=== PATIENT | male | born 1960 | race African-American/Black ===

== ENCOUNTER 2017-02-15 13:48 | Emergency (ER) | payer OTHER, MEDICAID ==
[~2017-02-15] VITALS: Ht 177.8 cm; Wt 97.0 kg
[~2017-02-15 13:48] MED LIST: AMLO10TA80; ATOR20TA; BENA40TA3; GLYB5TAB7; HYDR-2510; METF500T
[2017-02-15 20:56] LABS: CLARITY URINE CLEAR (CLEAR); COLOR URINE YELLOW (YELLOW); GLUCOSE URINE NEGATIVE (NEGATIVE); KETONES URINE NEGATIVE (NEGATIVE); LEUKOCYTE ESTERASE URINE 1+ (NEGATIVE); NITRITE URINE NEGATIVE (NEGATIVE); OCCULT BLOOD URINE 1+ (NEGATIVE); PH URINE 6.5 (4.5-8.0); PROTEIN URINE NEGATIVE (NEGATIVE); SPECIFIC GRAVITY URINE 1.021 (1.005-1.030); UROBILINOGEN URINE 0.2 E.U./dL (0.2-1.0)
[2017-02-15 21:06] LABS: MUCUS URINE 1+ /lpf (NONE/TRACE); SQUAMOUS EPITHELIAL CELL URINE FEW /lpf (RARE/1+)
[2017-02-15 21:10] LABS: BACTERIA URINE TRACE
[2017-02-15 22:17] VITALS: BP 144/91
== END 2017-02-15 22:38 | disposition home or self-care (01) ==
LOC: ER 14:00
DX: N45.1 Epididymitis (principal); E11.9 Type 2 diabetes mellitus without complications; E78.00 Pure hypercholesterolemia, unspecified; I10 Essential (primary) hypertension; Z79.4 Long term (current) use of insulin; Z79.899 Other long term (current) drug therapy
CPT/HCPCS: 76870; 81001; 93976; 99285

== ENCOUNTER 2018-02-15 14:09 | Emergency (ER) | payer OTHER, MEDICAID ==
[~2018-02-15] VITALS: Ht 177.8 cm; Wt 100.0 kg
[2018-02-15] MEDS ORDERED: vitamin b3 (14:20)
[2018-02-15] MEDS ORDERED: ZINC50TA4 PO (14:20)
[2018-02-15 14:42] LABS: BASOPHILS % 0.9 % (0.0-2.0); EOSINOPHILS % 1.3 % (0.0-5.0); HEMATOCRIT. 46.1 % (42.0-52.0); HEMOGLOBIN. 16.4 g/dL (14.0-18.0); LYMPHOCYTES % 22.6 % (20.0-50.0); MEAN CORPUSCULAR HEMOGLOBIN 33.1 pg (28.0-32.0); MEAN CORPUSCULAR VOLUME 93.1 fL (80.0-94.0); MEAN PLATELET VOLUME 8.6 fl (7.4-10.4); MONOCYTES % 11.9 % (2.0-8.0); NEUTROPHILS % 63.3 % (40.0-76.0); PLATELET 239 x1000/uL (130-400); RED BLOOD CELL COUNT 4.95 mill/uL (4.7-6.1)
[2018-02-15 14:46] LABS: CHLORIDE 99 mEq/L (98-107)
[2018-02-15 15:55] LABS: INR 1.1; PARTIAL THROMBOPLASTIN TIME 27.6 sec (23.4-31.0); PROTHROMBIN TIME 11.9 sec (9.4-11.6)
[2018-02-15 17:10] LABS: CLARITY URINE CLEAR (CLEAR); COLOR URINE YELLOW (YELLOW); KETONES URINE NEGATIVE (NEGATIVE); LEUKOCYTE ESTERASE URINE NEGATIVE (NEGATIVE); NITRITE URINE NEGATIVE (NEGATIVE); OCCULT BLOOD URINE NEGATIVE (NEGATIVE); PH URINE 5.5 (4.5-8.0); PROTEIN URINE NEGATIVE (NEGATIVE); SPECIFIC GRAVITY URINE 1.015 (1.005-1.030); UROBILINOGEN URINE 0.2 E.U./dL (0.2-1.0)
[2018-02-15] MEDS ORDERED: IBUPROFEN 600MG TABLET PO ONE (17:15)
[2018-02-15 17:53] VITALS: BP 127/82
== END 2018-02-15 17:56 | disposition home or self-care (01) ==
LOC: ER 14:09
DX: M54.5 Low back pain (principal); I10 Essential (primary) hypertension; E11.9 Type 2 diabetes mellitus without complications; Z87.891 Personal history of nicotine dependence; Z86.73 Personal history of transient ischemic attack (TIA), and cerebral infarction without residual deficits
CPT/HCPCS: 36415; 80053; 81003; 85025; 85610; 85730; 99284

== ENCOUNTER 2019-07-05 12:09 | Emergency (ER) | payer OTHER, MEDICAID ==
[~2019-07-05] VITALS: Ht 175.3 cm; Wt 104.5 kg
[~2019-07-05 12:09] MED LIST changes: -BENA40TA3; +BENA40TA9; +ZINC50TA4 PO; +vitamin b3
[2019-07-05] MEDS ORDERED: IBUPROFEN 800MG TABLET PO NR (15:00)
[2019-07-05] MEDS ORDERED: ACETAMINOPHEN 500MG TABLET PO NR (15:00)
[2019-07-05 17:22] VITALS: BP 125/86
== END 2019-07-05 17:23 | disposition home or self-care (01) ==
LOC: ER 12:09
DX: S13.9XXA Sprain of joints and ligaments of unspecified parts of neck, initial encounter (principal); E11.9 Type 2 diabetes mellitus without complications; I10 Essential (primary) hypertension; V49.40XA Driver injured in collision with unspecified motor vehicles in traffic accident, initial encounter; Y93.9 Activity, unspecified; Y92.410 Unspecified street and highway as the place of occurrence of the external cause; Z86.73 Personal history of transient ischemic attack (TIA), and cerebral infarction without residual deficits; Z96.651 Presence of right artificial knee joint
CPT/HCPCS: 72100; 73030; 73560; 99283

== ENCOUNTER 2021-12-21 06:05 | Emergency (ER) | payer OTHER, MEDICAID ==
[~2021-12-21] VITALS: Ht 175.3 cm; Wt 97.0 kg
[~2021-12-21 06:05] MED LIST changes: -HYDR-2510; +HYDR50TA; -ZINC50TA4 PO; +ZINC50TA71 PO
[2021-12-21] MEDS ORDERED: ACETAMINOPHEN 325MG TABLET PO ONE (06:30)
[2021-12-21] MEDS ORDERED: TOPUD PO (07:17)
[2021-12-21 07:27] VITALS: BP 140/65
== END 2021-12-21 07:28 | disposition home or self-care (01) ==
LOC: ER 06:05
DX: S00.83XA Contusion of other part of head, initial encounter (principal); E11.9 Type 2 diabetes mellitus without complications; I10 Essential (primary) hypertension; Y08.89XA Assault by other specified means, initial encounter; Y93.89 Activity, other specified; Y92.9 Unspecified place or not applicable; Z86.73 Personal history of transient ischemic attack (TIA), and cerebral infarction without residual deficits; Z96.659 Presence of unspecified artificial knee joint
CPT/HCPCS: 70486; 99284

== ENCOUNTER 2021-12-26 19:54 | Emergency (ER) | payer OTHER, MEDICAID ==
[~2021-12-26] VITALS: Ht 175.3 cm; Wt 96.0 kg
[~2021-12-26 19:54] MED LIST changes: +TOPUD PO
[2021-12-26] MEDS ORDERED: ACETAMINOPHEN 500MG TABLET PO ONE (21:00)
[2021-12-26] MEDS ORDERED: KETOROLAC 60MG/2ML VIAL IM ONE ×2 (21:00)
[2021-12-26] MEDS ORDERED: IBUP-2028 MT ×3 (22:38→22:45)
[2021-12-26 23:00] VITALS: BP 133/88
== END 2021-12-26 23:00 | disposition home or self-care (01) ==
LOC: ER 19:54
DX: R51.9 Headache, unspecified (principal); E11.9 Type 2 diabetes mellitus without complications; I10 Essential (primary) hypertension; Z86.73 Personal history of transient ischemic attack (TIA), and cerebral infarction without residual deficits; Z96.659 Presence of unspecified artificial knee joint; Z79.84 Long term (current) use of oral hypoglycemic drugs; Y08.89XA Assault by other specified means, initial encounter; Y93.89 Activity, other specified; Y92.59 Other trade areas as the place of occurrence of the external cause
CPT/HCPCS: 73564; 96372; 99283; J1885

== ENCOUNTER 2022-01-08 23:44 | Emergency (ER) | payer OTHER, MEDICAID ==
[~2022-01-08] VITALS: Ht 175.3 cm; Wt 96.0 kg
[~2022-01-08 23:44] MED LIST changes: +IBUP-2028 MT
[2022-01-09 00:18] VITALS: BP 169/98
[2022-01-09] MEDS ORDERED: ACETAMINOPHEN 325MG TABLET PO ONE (00:45)
[2022-01-09] MEDS ORDERED: BACITRACIN ZINC OINT UDPKT TOP ONE (00:45)
[2022-01-09] MEDS ORDERED: TETANUS, DIPHTHERIA, PERTUSSIS VAC/PF 0.5ML (>10YR OLD) IM ONE (02:30)
[2022-01-09] MEDS ORDERED: BO1 TP (02:35)
== END 2022-01-09 02:53 | disposition home or self-care (01) ==
LOC: ER 23:44
DX: S05.12XA Contusion of eyeball and orbital tissues, left eye, initial encounter (principal); E11.9 Type 2 diabetes mellitus without complications; I10 Essential (primary) hypertension; I69.351 Hemiplegia and hemiparesis following cerebral infarction affecting right dominant side; F12.10 Cannabis abuse, uncomplicated; Z96.659 Presence of unspecified artificial knee joint; Z79.84 Long term (current) use of oral hypoglycemic drugs; Y08.89XA Assault by other specified means, initial encounter; Y93.89 Activity, other specified; Y92.89 Other specified places as the place of occurrence of the external cause
CPT/HCPCS: 70486; 90471; 90715; 99284

== ENCOUNTER 2022-01-23 11:38 | Inpatient (IN) | payer OTHER, MEDICAID ==
[~2022-01-23] VITALS: Ht 175.3 cm; Wt 90.7 kg
[2022-01-23] VITALS (13 sets, daily range): BP systolic 110–151; BP diastolic 63–84
[~2022-01-23 11:38] MED LIST changes: -BENA40TA9; +BENA40TA91; +BO1 TP
[2022-01-23] MEDS ORDERED: ACETAMINOPHEN 325MG TABLET PO ONE (12:30)
[2022-01-23] MEDS ORDERED: LEVETIRACETAM 1000MG PREMIX 100 ML IV ONE (14:00)
[2022-01-23] MEDS ORDERED: MORPHINE SULFATE 4 MG/ML CPJ (NOT FOR IM USE) IV ONE (14:15)
[2022-01-23] MEDS ORDERED: ONDANSETRON HCL 4MG/2ML INJ IV ONE (14:15)
[2022-01-23 14:20] LABS: HEMOGLOBIN. 16.5 g/dL (14.0-18.0); MEAN CORPUSCULAR HEMOGLOBIN 33.2 pg (28.0-32.0); MEAN CORPUSCULAR VOLUME 96.6 fL (80.0-94.0); MEAN PLATELET VOLUME 8.9 fl (7.4-10.4); PLATELET 184 x1000/uL (130-400); RED BLOOD CELL COUNT 4.97 mill/uL (4.7-6.1); RED CELL DISTRIBUTION WIDTH 13.6 % (11.6-14.6)
[2022-01-23 14:27] LABS: CHLORIDE 100 mEq/L (98-107)
[2022-01-23] MEDS ORDERED: NICARDIPINE 100 MG in SODIUM CHLORIDE 0.9% 60 ML IV ONE (14:45)
[2022-01-23] MEDS ORDERED: NICARDIPINE 40 MG/200 ML PREMIX 200 ML IV PRN (14:45)
[2022-01-23 14:47] LABS: PLATELET ESTIMATE NORMAL
[2022-01-23] MEDS ORDERED: DEXAMETHASONE 10 MG/ML VIAL IV ONE (15:00)
[2022-01-23 16:27] LABS: INR 1.1; PROTHROMBIN TIME 11.4 sec (9.6-11.0)
[2022-01-23] MEDS ORDERED: MORPHINE SULFATE 2 MG/ML CPJ (NOT FOR IM USE) IV PRN (17:00)
[2022-01-23] MEDS ORDERED: ONDANSETRON HCL 4MG/2ML INJ IV PRN (17:00)
[2022-01-23] MEDS ORDERED: IPRATROPIUM/ALBUTEROL 0.5-3(2.5)MG/3ML NEB NEB PRN (17:00)
[2022-01-23] MEDS ORDERED: NALOXONE HCL 0.4MG/ML VIAL IV PRN (17:00)
[2022-01-23] MEDS ORDERED: DEXTROSE 50% WATER 50ML SYRINGE IV PRN (17:30)
[2022-01-23] MEDS: FAMOTIDINE 20MG/2ML VIAL IV SCH (18:41)
[2022-01-23] MEDS: BLOOD SUGAR DIAGNOSTIC STRIP TEST SCH ×2 (18:41→21:39)
[2022-01-23] MEDS: DEXT 5%/0.9% NACL 1,000 ML IV SCH (18:42)
[2022-01-23] MEDS: INSULIN LISPRO 100 UNITS/ML SUBCUT SCH ×2 (18:45→21:43)
[2022-01-23 19:57] LABS: CLARITY URINE CLEAR (CLEAR); COLOR URINE YELLOW (YELLOW); KETONES URINE 1+ (NEGATIVE); LEUKOCYTE ESTERASE URINE NEGATIVE (NEGATIVE); NITRITE URINE NEGATIVE (NEGATIVE); OCCULT BLOOD URINE NEGATIVE (NEGATIVE); PROTEIN URINE 1+ (NEGATIVE); SPECIFIC GRAVITY URINE 1.021 (1.005-1.030); UROBILINOGEN URINE 0.2 E.U./dL (0.2-1.0)
[2022-01-23 20:01] LABS: *BARBITURATES SCREEN URINE NEGATIVE (NEGATIVE); CANNABINOID URINE SCREEN NEGATIVE (NEGATIVE); METHADONE URINE SCREEN NEGATIVE (NEGATIVE); OPIATES URINE SCREEN PRESUMTIVE POSITIVE (NEGATIVE); PHENCYCLIDINE URINE SCREEN NEGATIVE (NEGATIVE)
[2022-01-23 20:02] LABS: *AMPHETAMINES SCREEN URINE NEGATIVE (NEGATIVE); *BENZODIAZEPINES SCREEN URINE NEGATIVE (NEGATIVE); *COCAINE SCREEN URINE NEGATIVE (NEGATIVE)
[2022-01-23] MEDS ORDERED: LEVETIRACETAM 500MG PREMIX 100 ML IV SCH (21:00)
[2022-01-23] MEDS: LEVETIRACETAM 500MG PREMIX 100 ML IV SCH (21:43)
[2022-01-23] MEDS: NICARDIPINE 100 MG in SODIUM CHLORIDE 0.9% 60 ML IV PRN (23:30)
[2022-01-24] VITALS (81 sets, daily range): BP systolic 82–207; BP diastolic 49–115
[2022-01-24] MEDS: DEXAMETHASONE 4MG/ML 1ML VIAL IV SCH ×5 (01:03→23:26)
[2022-01-24 05:51] LABS: HEMATOCRIT. 45.9 % (42.0-52.0); HEMOGLOBIN. 15.7 g/dL (14.0-18.0); MEAN CORPUSCULAR HEMOGLOBIN 33.6 pg (28.0-32.0); MEAN CORPUSCULAR VOLUME 98.5 fL (80.0-94.0); MEAN PLATELET VOLUME 9.3 fl (7.4-10.4); PLATELET 179 x1000/uL (130-400); RED BLOOD CELL COUNT 4.66 mill/uL (4.7-6.1); RED CELL DISTRIBUTION WIDTH 13.5 % (11.6-14.6)
[2022-01-24] MEDS: BLOOD SUGAR DIAGNOSTIC STRIP TEST SCH ×4 (05:58→20:27)
[2022-01-24] MEDS: DEXT 5%/0.9% NACL 1,000 ML IV SCH ×2 (06:01→20:27)
[2022-01-24] MEDS: INSULIN LISPRO 100 UNITS/ML SUBCUT SCH ×4 (06:02→22:33)
[2022-01-24 06:21] LABS: CHLORIDE 105 mEq/L (98-107)
[2022-01-24] MEDS: NICARDIPINE 100 MG in SODIUM CHLORIDE 0.9% 60 ML IV PRN (07:39)
[2022-01-24] MEDS: LEVETIRACETAM 500MG PREMIX 100 ML IV SCH ×2 (08:25→20:27)
[2022-01-24] MEDS: MORPHINE SULFATE 2 MG/ML CPJ (NOT FOR IM USE) IV PRN (08:25)
[2022-01-24] MEDS: FAMOTIDINE 20MG/2ML VIAL IV SCH (08:26)
[2022-01-24] MEDS ORDERED: BACITRACIN/POLYMYXIN B SULFATE OINT 28.35GM TOP ONE (08:41)
[2022-01-24] MEDS ORDERED: GENTAMICIN SULF 40MG/ML 2ML VIAL ONE (08:41)
[2022-01-24] MEDS ORDERED: LIDOCAINE HCL/EPINEPHRINE 1%-EPI 1:100,000 20 ML VIAL ONE (08:42)
[2022-01-24] MEDS ORDERED: THROMBIN (BOVINE) 5000 UNITS/VIAL TOP ONE (08:42)
[2022-01-24] MEDS ORDERED: GADOTERATE MEGLUMINE 5 MMOL/10 ML VIAL IV ONE (09:51)
[2022-01-24] MEDS ORDERED: DEXAMETHASONE 4MG/ML 1ML VIAL ONE (13:15)
[2022-01-24] MEDS ORDERED: HYDROMORPHONE HCL/PF 2MG/ML (OR) ONE (13:15)
[2022-01-24] MEDS ORDERED: CEFAZOLIN SODIUM 1000MG/VIAL ONE (13:15)
[2022-01-24 13:19] LABS: PLATELET ESTIMATE NORMAL
[2022-01-24] MEDS ORDERED: CALCIUM CHLORIDE 1GM/10ML SYR IV ONE (13:40)
[2022-01-24] MEDS ORDERED: CEFAZOLIN SODIUM 1000MG/VIAL IV SCH (14:00)
[2022-01-24] MEDS ORDERED: HYDRALAZINE 20MG/ML VIAL ONE (14:12)
[2022-01-24] MEDS: DEXMEDETOMIDINE 400 MCG/100 ML 100 ML IV PRN ×2 (14:57→23:29)
[2022-01-24] MEDS: CEFAZOLIN 1000MG PREMIX 50 ML IV SCH ×2 (15:25→23:25)
[2022-01-24] MEDS: MORPHINE SULFATE 4 MG/ML CPJ (NOT FOR IM USE) IV PRN (18:27)
[2022-01-24] MEDS ORDERED: MORPHINE SULFATE 4 MG/ML CPJ (NOT FOR IM USE) IV NR (20:15)
[2022-01-25] VITALS (74 sets, daily range): BP systolic 84–177; BP diastolic 38–135
[2022-01-25] MEDS: MORPHINE SULFATE 4 MG/ML CPJ (NOT FOR IM USE) IV PRN ×4 (00:10→18:56)
[2022-01-25] MEDS ORDERED: B12/1TAB MT (03:45)
[2022-01-25] MEDS ORDERED: CHOL400D7 PO (03:45)
[2022-01-25 06:01] LABS: HEMATOCRIT. 44.4 % (42.0-52.0); HEMOGLOBIN. 15.1 g/dL (14.0-18.0); MEAN CORPUSCULAR HEMOGLOBIN 33.9 pg (28.0-32.0); MEAN CORPUSCULAR VOLUME 99.7 fL (80.0-94.0); MEAN PLATELET VOLUME 9.7 fl (7.4-10.4); PLATELET 189 x1000/uL (130-400); RED BLOOD CELL COUNT 4.46 mill/uL (4.7-6.1); RED CELL DISTRIBUTION WIDTH 13.7 % (11.6-14.6)
[2022-01-25 06:13] LABS: CHLORIDE 105 mEq/L (98-107)
[2022-01-25] MEDS: BLOOD SUGAR DIAGNOSTIC STRIP TEST SCH ×4 (06:18→20:43)
[2022-01-25] MEDS: INSULIN LISPRO 100 UNITS/ML SUBCUT SCH ×4 (06:34→20:44)
[2022-01-25] MEDS: CEFAZOLIN 1000MG PREMIX 50 ML IV SCH ×2 (06:35→14:02)
[2022-01-25] MEDS ORDERED: ONDANSETRON HCL 4MG/2ML INJ IV PRN (07:00)
[2022-01-25 07:07] LABS: PLATELET ESTIMATE NORMAL
[2022-01-25] MEDS: LEVETIRACETAM 500MG PREMIX 100 ML IV SCH ×2 (08:00→20:42)
[2022-01-25] MEDS: FAMOTIDINE 20MG/2ML VIAL IV SCH (08:01)
[2022-01-25 12:26] LABS: BG CARBOXYHEMOGLOBIN 0.4 % (0.5-1.5); BG DEOXYHEMOGLOBIN 5.2 % (0.0-5.0); BG FRACTION INSPIRED OXYGEN 28; BG HCO3 ACT 19.8 mmol/L (22.0-26.0); BG METHEMOGLOBIN 0.6 % (0.0-1.5); BG OXYGEN SATURATION 94.7 % (92.0-98.5); BG OXYHEMOGLOBIN 93.8 % (94.0-97.0); BG PCO2 33.2 mmHg (35.0-45.0); BG PH 7.393 (7.350-7.450); BG PO2 75.8 mmHg (75.0-100.0); BG TOTAL HEMOGLOBIN 16.2 g/dL (12.0-18.0); BG VENT MODE NASAL CANNULA
[2022-01-25 12:28] LABS: BG SAMPLE SITE RIGHT RADIAL
[2022-01-25] MEDS: AMLODIPINE 5MG TABLET PO SCH ×2 (13:38→20:43)
[2022-01-25] MEDS: HYDRALAZINE HCL 50MG TABLET PO SCH ×2 (13:39→22:36)
[2022-01-25] MEDS: MORPHINE SULFATE 2 MG/ML CPJ (NOT FOR IM USE) IV PRN (13:44)
[2022-01-25] MEDS: DEXT 5%/0.9% NACL 1,000 ML IV SCH (13:47)
[2022-01-25] MEDS ORDERED: LOSARTAN POTASSIUM 50 MG TABLET PO NR (18:15)
[2022-01-25] MEDS: IPRATROPIUM/ALBUTEROL 0.5-3(2.5)MG/3ML NEB HHN SCH (21:21)
[2022-01-25] MEDS: NICARDIPINE 100 MG in SODIUM CHLORIDE 0.9% 60 ML IV PRN (22:21)
[2022-01-26] VITALS (74 sets, daily range): BP systolic 105–171; BP diastolic 41–105
[2022-01-26] MEDS: IPRATROPIUM/ALBUTEROL 0.5-3(2.5)MG/3ML NEB HHN SCH ×4 (01:04→21:40)
[2022-01-26] MEDS: MORPHINE SULFATE 4 MG/ML CPJ (NOT FOR IM USE) IV PRN ×4 (01:58→23:51)
[2022-01-26] MEDS: CEFAZOLIN 1000MG PREMIX 50 ML IV SCH ×3 (02:13→15:14)
[2022-01-26] MEDS: DEXT 5%/0.9% NACL 1,000 ML IV SCH (02:13)
[2022-01-26] MEDS: CLONIDINE 0.1MG TABLET PO PRN (04:01)
[2022-01-26] MEDS: MORPHINE SULFATE 2 MG/ML CPJ (NOT FOR IM USE) IV PRN ×2 (04:06→12:29)
[2022-01-26] MEDS: BLOOD SUGAR DIAGNOSTIC STRIP TEST SCH ×4 (05:26→20:20)
[2022-01-26 05:49] LABS: HEMATOCRIT. 42.9 % (42.0-52.0); HEMOGLOBIN. 14.6 g/dL (14.0-18.0); MEAN CORPUSCULAR HEMOGLOBIN 33.8 pg (28.0-32.0); MEAN CORPUSCULAR VOLUME 99.1 fL (80.0-94.0); MEAN PLATELET VOLUME 9.6 fl (7.4-10.4); PLATELET 196 x1000/uL (130-400); RED BLOOD CELL COUNT 4.33 mill/uL (4.7-6.1); RED CELL DISTRIBUTION WIDTH 14.1 % (11.6-14.6)
[2022-01-26 05:58] LABS: CHLORIDE 109 mEq/L (98-107)
[2022-01-26] MEDS: HYDRALAZINE HCL 50MG TABLET PO SCH (06:06)
[2022-01-26] MEDS: INSULIN LISPRO 100 UNITS/ML SUBCUT SCH ×4 (06:10→20:20)
[2022-01-26] MEDS: NICARDIPINE 100 MG in SODIUM CHLORIDE 0.9% 60 ML IV PRN (06:16)
[2022-01-26 08:03] LABS: PLATELET ESTIMATE NORMAL
[2022-01-26] MEDS: LOSARTAN POTASSIUM 50 MG TABLET PO SCH (09:05)
[2022-01-26] MEDS: FAMOTIDINE 20MG/2ML VIAL IV SCH (09:05)
[2022-01-26] MEDS: AMLODIPINE 5MG TABLET PO SCH ×2 (09:05→20:18)
[2022-01-26] MEDS: LEVETIRACETAM 500MG PREMIX 100 ML IV SCH ×2 (09:06→20:17)
[2022-01-26] MEDS ORDERED: HYDRALAZINE HCL 50MG TABLET PO NR (11:00)
[2022-01-26] MEDS: HYDRALAZINE HCL 100MG TABLET PO SCH ×2 (15:14→21:48)
[2022-01-27] VITALS (30 sets, daily range): BP systolic 123–166; BP diastolic 64–100
[2022-01-27] MEDS: HYDRALAZINE 20MG/ML VIAL IV PRN ×2 (02:50→17:50)
[2022-01-27] MEDS: HYDRALAZINE HCL 100MG TABLET PO SCH ×3 (05:12→21:03)
[2022-01-27] MEDS: BLOOD SUGAR DIAGNOSTIC STRIP TEST SCH ×4 (05:43→21:04)
[2022-01-27 06:01] LABS: EOSINOPHILS % 0.1 % (0.0-5.0); HEMATOCRIT. 42.5 % (42.0-52.0); HEMOGLOBIN. 14.8 g/dL (14.0-18.0); LYMPHOCYTES % 9.6 % (20.0-50.0); MEAN CORPUSCULAR HEMOGLOBIN 33.9 pg (28.0-32.0); MONOCYTES % 12.5 % (2.0-8.0); NEUTROPHILS % 77.8 % (40.0-76.0); PLATELET 178 x1000/uL (130-400); RED BLOOD CELL COUNT 4.38 mill/uL (4.7-6.1); RED CELL DISTRIBUTION WIDTH 13.9 % (11.6-14.6)
[2022-01-27 06:02] LABS: CHLORIDE 110 mEq/L (98-107)
[2022-01-27] MEDS: INSULIN LISPRO 100 UNITS/ML SUBCUT SCH ×4 (06:03→21:04)
[2022-01-27] MEDS: FAMOTIDINE 20MG/2ML VIAL IV SCH (08:53)
[2022-01-27] MEDS: AMLODIPINE 5MG TABLET PO SCH ×2 (08:54→21:04)
[2022-01-27] MEDS: LOSARTAN POTASSIUM 50 MG TABLET PO SCH (08:54)
[2022-01-27] MEDS: LEVETIRACETAM 500MG PREMIX 100 ML IV SCH ×2 (08:54→21:03)
[2022-01-27] MEDS: IPRATROPIUM/ALBUTEROL 0.5-3(2.5)MG/3ML NEB HHN SCH ×4 (09:18→18:00)
[2022-01-27] MEDS: MORPHINE SULFATE 2 MG/ML CPJ (NOT FOR IM USE) IV PRN (10:02)
[2022-01-27] MEDS ORDERED: POTASSIUM CHLORIDE 20MEQ TABLET SR PO NR (11:15)
[2022-01-27] MEDS ORDERED: LACTULOSE 20G/30ML UDC PO PRN (12:00)
[2022-01-27] MEDS: MORPHINE SULFATE 4 MG/ML CPJ (NOT FOR IM USE) IV PRN ×2 (17:56→21:17)
[2022-01-27] MEDS: CLONIDINE 0.1MG TABLET PO PRN (19:00)
[2022-01-28] VITALS (33 sets, daily range): BP systolic 91–156; BP diastolic 25–100
[2022-01-28 05:08] LABS: HEMATOCRIT. 45.5 % (42.0-52.0); HEMOGLOBIN. 15.6 g/dL (14.0-18.0); MEAN CORPUSCULAR HEMOGLOBIN 33.7 pg (28.0-32.0); MEAN CORPUSCULAR VOLUME 98.5 fL (80.0-94.0); MEAN PLATELET VOLUME 8.8 fl (7.4-10.4); PLATELET 176 x1000/uL (130-400); RED BLOOD CELL COUNT 4.62 mill/uL (4.7-6.1); RED CELL DISTRIBUTION WIDTH 14.1 % (11.6-14.6)
[2022-01-28 05:18] LABS: CHLORIDE 107 mEq/L (98-107)
[2022-01-28] MEDS: BLOOD SUGAR DIAGNOSTIC STRIP TEST SCH ×4 (05:49→20:39)
[2022-01-28] MEDS: INSULIN LISPRO 100 UNITS/ML SUBCUT SCH ×4 (05:50→21:00)
[2022-01-28] MEDS: HYDRALAZINE HCL 100MG TABLET PO SCH ×3 (05:50→20:37)
[2022-01-28 07:43] LABS: PLATELET ESTIMATE NORMAL
[2022-01-28] MEDS: AMLODIPINE 5MG TABLET PO SCH ×2 (08:55→20:40)
[2022-01-28] MEDS: FAMOTIDINE 20MG/2ML VIAL IV SCH (08:55)
[2022-01-28] MEDS: LEVETIRACETAM 500MG PREMIX 100 ML IV SCH ×2 (08:55→20:37)
[2022-01-28] MEDS: LOSARTAN POTASSIUM 50 MG TABLET PO SCH (08:55)
[2022-01-28] MEDS: MORPHINE SULFATE 4 MG/ML CPJ (NOT FOR IM USE) IV PRN (08:56)
[2022-01-28] MEDS: IPRATROPIUM/ALBUTEROL 0.5-3(2.5)MG/3ML NEB HHN SCH ×3 (10:05→14:40)
[2022-01-28] MEDS: HYDRALAZINE 20MG/ML VIAL IV PRN (10:07)
[2022-01-28] MEDS: CLONIDINE 0.1MG TABLET PO PRN (11:02)
[2022-01-28] MEDS: HYDROCODONE/ACETAMINOPHEN 5/325MG TABLET PO PRN ×2 (11:02→18:00)
[2022-01-28 11:17] LABS: CREATINE KINASE 74 IU/L (39-308)
[2022-01-28 11:18] LABS: CREATINE KINASE MB FRACTION 1.4 ng/mL (0.5-3.6)
[2022-01-29] VITALS: BP 138/75
[2022-01-29] MEDS: HYDROCODONE/ACETAMINOPHEN 5/325MG TABLET PO PRN ×2 (01:42→11:59)
[2022-01-29] MEDS: IPRATROPIUM/ALBUTEROL 0.5-3(2.5)MG/3ML NEB HHN SCH ×2 (03:03→10:03)
[2022-01-29 04:00] VITALS: BP 143/84
[2022-01-29] MEDS: BLOOD SUGAR DIAGNOSTIC STRIP TEST SCH ×2 (06:09→12:08)
[2022-01-29] MEDS: HYDRALAZINE HCL 100MG TABLET PO SCH ×3 (06:24→14:22)
[2022-01-29] MEDS: INSULIN LISPRO 100 UNITS/ML SUBCUT SCH ×2 (06:24→12:23)
[2022-01-29 08:00] VITALS: BP 151/81
[2022-01-29] MEDS: AMLODIPINE 5MG TABLET PO SCH (08:34)
[2022-01-29] MEDS: FAMOTIDINE 20MG/2ML VIAL IV SCH (08:34)
[2022-01-29] MEDS: LEVETIRACETAM 500MG PREMIX 100 ML IV SCH (08:34)
[2022-01-29] MEDS: LOSARTAN POTASSIUM 50 MG TABLET PO SCH (08:34)
[2022-01-29] MEDS ORDERED: KEPP500 MT (10:32)
[2022-01-29] MEDS: CLONIDINE 0.1MG TABLET PO PRN (11:58)
[2022-01-29 12:00] VITALS: BP 176/95
[2022-01-29 13:20] VITALS: BP 149/75
== END 2022-01-29 15:00 | disposition home or self-care (01) | DRG 26 ==
LOC: ER 11:38 → MICUNO 14:56 → EDBEDREQTM 15:18 → EDBEDREQ 15:18 → SUPCPDRO 17:25 → 7EST 01-28 19:10
PROVIDERS: ADMIT Internal Medicine; ATTEND Internal Medicine
PROC: 00C40ZZ Extirpation of Matter from Intracranial Subdural Space, Open Approach (ICD-10-PCS; principal; 2022-01-24)
PROC: 009430Z Drainage of Intracranial Subdural Space with Drainage Device, Percutaneous Approach (ICD-10-PCS; 2022-01-24)
PROC: 00U207Z Supplement Dura Mater with Autologous Tissue Substitute, Open Approach (ICD-10-PCS; 2022-01-24)
PROC: 0NR007Z Replacement of Skull with Autologous Tissue Substitute, Open Approach (ICD-10-PCS; 2022-01-24)
PROC: 00H602Z Insertion of Monitoring Device into Cerebral Ventricle, Open Approach (ICD-10-PCS; 2022-01-24)
PROC: 4A103BD Monitoring of Intracranial Pressure, Percutaneous Approach (ICD-10-PCS; 2022-01-24)
DX: S06.5X0A Traumatic subdural hemorrhage without loss of consciousness, initial encounter (principal); E87.1 Hypo-osmolality and hyponatremia; G93.40 Encephalopathy, unspecified; S02.40FA Zygomatic fracture, left side, initial encounter for closed fracture; E11.65 Type 2 diabetes mellitus with hyperglycemia; E66.9 Obesity, unspecified; I10 Essential (primary) hypertension; Z96.659 Presence of unspecified artificial knee joint; D72.825 Bandemia; Z20.822 Contact with and (suspected) exposure to COVID-19; S02.2XXA Fracture of nasal bones, initial encounter for closed fracture; X58.XXXA Exposure to other specified factors, initial encounter; Y93.89 Activity, other specified; Z79.899 Other long term (current) drug therapy; Z79.1 Long term (current) use of non-steroidal anti-inflammatories (NSAID); Z86.73 Personal history of transient ischemic attack (TIA), and cerebral infarction without residual deficits; Y92.89 Other specified places as the place of occurrence of the external cause; Y99.8 Other external cause status; M79.662 Pain in left lower leg; Z68.29 Body mass index [BMI] 29.0-29.9, adult
CPT/HCPCS: 36415; 36600; 70486; 70553; 71045; 72170; 73551; 80048; 80053; 80305; 81003; 82375; 82550; 82553; 82805; 82962; 84145; 84443; 84484; 85025; 86850; 86900; 87426; 93005; 93306; 94640; 97110; 97116; 97162; 97166; 97530; 97535; 99291; A9577; C1713; J0360; J0690; J1100; J1170; J1580; J1815; J1953; J2270; J2405; J3490; J7042; J7050; J7070; J7120; Q9957

== ENCOUNTER 2022-02-06 11:39 | Emergency (ER) | payer OTHER, MEDICAID ==
[~2022-02-06] VITALS: Ht 175.3 cm; Wt 92.0 kg
[~2022-02-06 11:39] MED LIST changes: +B12/1TAB MT; +BENA40TA9; -BENA40TA91; +CHOL400D7 PO; +KEPP500 MT
[2022-02-06 12:22] VITALS: BP 154/91
== END 2022-02-06 13:12 | disposition home or self-care (01) ==
LOC: ER 11:39
DX: Z48.02 Encounter for removal of sutures (principal)
CPT/HCPCS: 99281

== ENCOUNTER 2022-07-30 18:24 | Inpatient (IN) | payer OTHER, MEDICAID ==
[~2022-07-30] VITALS: Ht 172.7 cm; Wt 94.3 kg
[~2022-07-30 18:24] MED LIST changes: -BENA40TA9; +BENA40TA91
[2022-07-31] MEDS ORDERED: ASPIRIN 81MG TABLET PO ONE (01:15)
[2022-07-31] MEDS ORDERED: NITROGLYCERIN 0.4MG TABLET SL SL PRN (01:15)
[2022-07-31 01:31] LABS: CHLORIDE 99 mEq/L (98-107)
[2022-07-31 01:33] LABS: BASOPHILS % 0.8 % (0.0-2.0); EOSINOPHILS % 1.5 % (0.0-5.0); HEMATOCRIT. 52.3 % (42.0-52.0); LYMPHOCYTES % 20.2 % (20.0-50.0); MEAN CORPUSCULAR HEMOGLOBIN 33.6 pg (28.0-32.0); MEAN CORPUSCULAR VOLUME 97.3 fL (80.0-94.0); MEAN PLATELET VOLUME 9.2 fl (7.4-10.4); MONOCYTES % 11.8 % (2.0-8.0); NEUTROPHILS % 65.7 % (40.0-76.0); PLATELET 191 x1000/uL (130-400); RED BLOOD CELL COUNT 5.37 mill/uL (4.7-6.1); RED CELL DISTRIBUTION WIDTH 13.7 % (11.6-14.6)
[2022-07-31 01:51] LABS: ETHANOL BLOOD < 10 mg/dL
[2022-07-31] MEDS ORDERED: ASPIRIN 81MG TABLET PO NR (03:45)
[2022-07-31 03:46] LABS: *AMPHETAMINES SCREEN URINE NEGATIVE (NEGATIVE); *BARBITURATES SCREEN URINE NEGATIVE (NEGATIVE); *BENZODIAZEPINES SCREEN URINE NEGATIVE (NEGATIVE); *COCAINE SCREEN URINE NEGATIVE (NEGATIVE); CANNABINOID URINE SCREEN NEGATIVE (NEGATIVE); METHADONE URINE SCREEN NEGATIVE (NEGATIVE); OPIATES URINE SCREEN NEGATIVE (NEGATIVE); PHENCYCLIDINE URINE SCREEN NEGATIVE (NEGATIVE)
[2022-07-31 12:00] VITALS: BP 146/110
[2022-07-31] MEDS ORDERED: INSULIN LISPRO 100 UNITS/ML SUBCUT SCH (13:15)
[2022-07-31] MEDS ORDERED: DEXTROSE 50% WATER 50ML SYRINGE IV PRN (13:15)
[2022-07-31] MEDS ORDERED: ACETAMINOPHEN 325MG TABLET PO PRN (13:30)
[2022-07-31] MEDS ORDERED: ONDANSETRON HCL 4MG/2ML INJ IV PRN (13:30)
[2022-07-31] MEDS ORDERED: IPRATROPIUM/ALBUTEROL 0.5-3(2.5)MG/3ML NEB HHN PRN (13:30)
[2022-07-31] MEDS ORDERED: REGADENOSON 0.4 MG/5 ML IV ONE (13:45)
[2022-07-31] MEDS: ATORVASTATIN CALCIUM 20MG TABLET PO SCH (13:48)
[2022-07-31] MEDS: LEVETIRACETAM 500MG TABLET PO SCH ×2 (13:49→21:17)
[2022-07-31] MEDS: AMLODIPINE 10MG TABLET PO SCH (13:49)
[2022-07-31] MEDS: INSULIN LISPRO 100 UNITS/ML SUBCUT SCH ×3 (13:50→21:18)
[2022-07-31 15:02] VITALS: BP 146/110
[2022-07-31 16:00] VITALS: BP 124/82
[2022-07-31] MEDS: BLOOD SUGAR DIAGNOSTIC STRIP TEST SCH ×2 (18:16→21:18)
[2022-07-31 20:00] VITALS: BP 141/98
[2022-08-01] VITALS: BP 108/90
[2022-08-01 04:00] VITALS: BP 127/80
[2022-08-01] MEDS: INSULIN LISPRO 100 UNITS/ML SUBCUT SCH ×2 (06:20→13:10)
[2022-08-01] MEDS: BLOOD SUGAR DIAGNOSTIC STRIP TEST SCH ×2 (06:20→12:40)
[2022-08-01 06:30] LABS: HEMATOCRIT. 46.3 % (42.0-52.0); HEMOGLOBIN. 15.8 g/dL (14.0-18.0); MEAN CORPUSCULAR HEMOGLOBIN 33.2 pg (28.0-32.0); MEAN CORPUSCULAR VOLUME 97.3 fL (80.0-94.0); MEAN PLATELET VOLUME 9.3 fl (7.4-10.4); PLATELET 180 x1000/uL (130-400); RED BLOOD CELL COUNT 4.76 mill/uL (4.7-6.1); RED CELL DISTRIBUTION WIDTH 13.7 % (11.6-14.6)
[2022-08-01 08:00] VITALS: BP 136/97
[2022-08-01] MEDS ORDERED: REGADENOSON 0.4 MG/5 ML IV ONE (08:47)
[2022-08-01] MEDS: LEVETIRACETAM 500MG TABLET PO SCH (09:00)
[2022-08-01 10:00] LABS: PLATELET ESTIMATE NORMAL
[2022-08-01 10:51] LABS: CHLORIDE 99 mEq/L (98-107)
[2022-08-01] MEDS: ATORVASTATIN CALCIUM 20MG TABLET PO SCH (11:12)
[2022-08-01] MEDS: AMLODIPINE 10MG TABLET PO SCH (11:14)
[2022-08-01 12:00] VITALS: BP 138/99
[2022-08-01] MEDS ORDERED: POTASSIUM CHLORIDE 20MEQ TABLET SR PO NR (13:00)
== END 2022-08-01 14:15 | disposition home health service (06) | DRG 205 ==
LOC: ER 18:24 → 7WST 07-31 03:55 → ENRESERV 07-31 07:45
PROVIDERS: ADMIT Internal Medicine; ATTEND Internal Medicine
DX: M94.0 Chondrocostal junction syndrome [Tietze] (principal); I50.33 Acute on chronic diastolic (congestive) heart failure; I69.351 Hemiplegia and hemiparesis following cerebral infarction affecting right dominant side; I11.0 Hypertensive heart disease with heart failure; E11.9 Type 2 diabetes mellitus without complications; E78.5 Hyperlipidemia, unspecified; F12.90 Cannabis use, unspecified, uncomplicated; F10.10 Alcohol abuse, uncomplicated; Z96.651 Presence of right artificial knee joint; Z87.891 Personal history of nicotine dependence; Z79.899 Other long term (current) drug therapy
CPT/HCPCS: 36415; 71045; 78452; 80048; 80053; 80061; 80305; 80320; 82962; 83036; 83735; 83880; 84484; 85025; 93005; 93017; 93306; 99285; A9500; J1815; J2785; G0480

== ENCOUNTER 2022-09-28 16:01 | Emergency (ER) | payer OTHER, MEDICAID ==
[~2022-09-28] VITALS: Ht 182.9 cm; Wt 97.5 kg
[2022-09-28 16:06] VITALS: BP 148/96
[2022-09-28] MEDS: FLUORESCEIN SODIUM 1MG/STRIP LEFTEYE ONE (23:31)
[2022-09-28] MEDS: TETRACAINE 0.5% OPHTH DROPS 4ML LEFTEYE ONE (23:31)
[2022-09-28] MEDS: TETRACAINE 0.5% OPHTH DROPS 4ML LEFTEYE NR (23:39)
[2022-09-28] MEDS: FLUORESCEIN SODIUM 1MG/STRIP LEFTEYE NR (23:39)
[2022-09-29] MEDS: ACETAMINOPHEN 325MG TABLET PO ONE (00:05)
== END 2022-09-29 00:02 | disposition home or self-care (01) ==
LOC: ER 16:01
DX: S09.8XXA Other specified injuries of head, initial encounter (principal); Y08.89XA Assault by other specified means, initial encounter; Y93.89 Activity, other specified; Y92.89 Other specified places as the place of occurrence of the external cause; Y99.8 Other external cause status; E11.9 Type 2 diabetes mellitus without complications; I10 Essential (primary) hypertension; Z86.73 Personal history of transient ischemic attack (TIA), and cerebral infarction without residual deficits; Z79.899 Other long term (current) drug therapy
CPT/HCPCS: 72170; 99284